=== PATIENT | male | born 1995 | race Caucasian/White ===

== ENCOUNTER → 2016-08-24 | Day surgery (SDC) | payer BC ==
[2016-08-19 11:53] VITALS: BMI 23.7
[~2016-08-24] MED LIST: BUPIVACAIN-EPI 0.25%-1:200,000 30 ML VIAL SQ ONE; CLINDAMYCIN 900 MG in DEXTROSE 5% IN WATER 50 ML IVPB ONE; DEXAMETHASONE SOD PHOSPHATE 10 MG/ML 1 ML VIAL IV ONE; GLYCOPYRROLATE 0.2 MG/ML 2 ML VIAL ONE; HEPARIN SODIUM,PORCINE 5,000 UNIT/ML 1 ML VIAL SQ ONE; HYDROmorphone (PF) 1 MG/ML ONE; LACTATED RINGERS 1,000 ML IV SCH; LIDOCAINE 1% 20 ML VIAL (10MG/ML) FOR IV START INTRADERMA ONE; MIDAZOLAM 2 MG/2 ML VIAL IV PRN; MIDAZOLAM 2 MG/2 ML VIAL ONE; NEOSTIGMINE 1 MG/ML 10 ML VIAL ONE; ONDANSETRON 4 MG/2 ML VIAL IVP ONE; PROPOFOL 10 MG/ML 20 ML VIAL IV ONE; ROCURONIUM BROMIDE 10 MG/ML 10 ML VIAL IV ONE; SUCCINYLCHOLINE CHLORIDE 100 MG/5 ML SYR IV ONE; fentaNYL (PF) 50 MCG/ML 2 ML AMP ONE
--- NOTE | 2016-08-24 17:28 | P.OP ---
Date of Procedure: 08/24/16 Preoperative Diagnosis: Painful right inguinal swelling Postoperative Diagnosis: Right indirect inguinal hernia Procedure(s) Performed: Robot-assisted laparoscopic right inguinal hernia repair Anesthesia: KRISTENA Surgeon: Linda Chahal Estimated Blood Loss (ml): 10 Pathology: none sent Condition: stable Disposition: PACU Operative Findings: Right indirect inguinal hernia Description of Procedure: Informed consent was obtained patient and then The patient was brought to the operating room and placed in supine position. General anesthesia with endotracheal intubation was performed as per anesthesia team. Chlorhexidine was used to prep the skin followed by application of sterile drapes . He was placed in the lithotomy position. A timeout was performed to verify correct patient, correct procedure and correct side. Patient was confirmed to receive perioperative IV antibiotics, subcutaneous heparin 5000 units and bilateral SCDs were placed. The left upper quadrant point was identified and a stab incision was made. Veress needle was introduced and placement was confirmed with the help of the drop test. The abdomen was then insufflated to 15 mmHg. Once that was done 5 mm port was introduced into the left upper quadrant using the Optiview technique after which a 12 mm port was placed in the supraumbilical position and a 8 mm port in the right lower quadrant and another in the left lower quadrant The robot was then docked with the central camera port and the 2 side working ports through which the scissors and the forceps were introduced after which the median umbilical fold was retracted laterally towards the left side a small incision was made at the junction of the umbilical fold and the peritoneum and carried all the way laterally thus creating a small plane in the preperitoneal space. This did this was further dissected with the help of blunt dissection using gentle stroking maneuvers all the way down to Rene ligament medially and laterally we went inferior exposing the vessels inferiorly. The vas was identified and the hernia sac was teased off of the spermatic cord gently with the help of blunt dissection and once it was taken off and the hernia sac was completely reduced and the critical view of the myopectineal orifice was obtained, 10 x 15 Bard Pro crop duster mesh was introduced in the abdominal cavity with the lower part above the level of the peritoneal fold was then unfolded so that it covered all the orifices and covered the Rene's ligament medially once again pain positioned perfectly to seal was applied to the inferior edge of the mesh as well as around the Rene's ligament after which the peritoneal flaps were closed with the help of running 2 o V lock suture once that was done procedure was completed all incisions and camera was removed and a laparoscope was introduced and the 12 mm port site was closed with the help of a Cem Briones the direct vision after which gas was turned off abdomen was thoroughly desufflated skins was closed with the help of 4-0 Monocryl and Dermabond. The patient was extubated and taken to recovery room in stable condition patient tolerated the procedure well there
[2016-08-24 17:47] VITALS: TEMP 98.2
[2016-08-24 17:57] VITALS: RESP 16
[2016-08-24] MEDS: HYDROmorphone 1 MG/ML 1 ML SYRINGE IVP PRN ×2 (18:08→18:19)
[2016-08-24 18:44] VITALS: BP 147/82; PULSE 101
== END | disposition home or self-care (01) ==
LOC: OR 15:11
PROVIDERS: ATTEND Surgery
DX: K40.90 Unilateral inguinal hernia, without obstruction or gangrene, not specified as recurrent (principal); K21.9 Gastro-esophageal reflux disease without esophagitis
CPT/HCPCS: 49650; S2900